=== PATIENT | female | born 1945 | race Caucasian/White ===

== ENCOUNTER → 2021-10-02 | Outpatient (CLI) | payer MEDICARE ==
[2021-10-02 09:12] LABS: BASO # 0.02 K/mm3 (0.02-0.10); EOS # 0.13 K/mm3 (0.04-0.40); EOS % 1.4 % (1.0-5.0); HEMOGLOBIN 13.6 g/dL (12.5-16.0); LYMPH# 1.65 K/mm3 (1.50-4.00); MEAN CELL VOLUME 93 fl (78-100); MEAN CORPUSCULAR HEMOGLOBIN 29 pg (27-31); MEAN CORPUSCULAR HGB CONC 31 g/dL (33-37); MEAN PLATELET VOLUME 9.4 fl (7.4-10.4); MONO # 0.62 K/mm3 (0.20-0.80); NEU # 6.91 K/mm3 (1.40-6.50); PLATELET COUNT 480 K/mm3 (130-400); RED BLOOD COUNT 4.71 M/mm3 (4.10-5.30); RED CELL DISTRIBUTION WIDTH 15.8 % (11.5-14.5); WHITE BLOOD COUNT 9.4 K/mm3 (4.8-10.8)
[2021-10-02 09:20] LABS: ALBUMIN 4.1 g/dL (3.4-4.8)
[2021-10-02 09:21] LABS: CALCIUM 9.6 mg/dL (8.3-10.5)
[2021-10-02 09:23] LABS: TOTAL PROTEIN 7.7 g/dL (6.2-8.1)
[2021-10-02 09:24] LABS: TOTAL BILIRUBIN 0.5 mg/dL (0.2-1.2)
[2021-10-02 11:35] LABS: URINE APPEARANCE CLOUDY; URINE BILIRUBIN NEGATIVE (NEGATIVE); URINE BLOOD TRACE (NEGATIVE); URINE COLOR LT YELLOW; URINE GLUCOSE NEGATIVE (NEGATIVE); URINE KETONE NEGATIVE (NEGATIVE); URINE LEUKOCYTE ESTERASE 1+ (NEGATIVE); URINE NITRATE POSITIVE (NEGATIVE); URINE PROTEIN(semi-quant) 1+ (NEGATIVE); URINE UROBILINOGEN NORMAL (NORMAL)
[2021-10-02 11:36] LABS: URINE WBC >50 /hpf (0-3)
== END ==
LOC: LAB 07:09
PROVIDERS: Family Medicine
DX: Z00.00 Encounter for general adult medical examination without abnormal findings (principal); E78.5 Hyperlipidemia, unspecified; R30.9 Painful micturition, unspecified

== ENCOUNTER → 2021-10-25 | Outpatient (CLI) | payer MEDICARE | LOC: LAB 14:52 | DX: E78.5 Hyperlipidemia, unspecified (principal); B37.2 Candidiasis of skin and nail; N39.0 Urinary tract infection, site not specified ==

== ENCOUNTER → 2021-11-21 | Outpatient (CLI) | payer MEDICARE | LOC: LAB 13:17 | DX: E78.5 Hyperlipidemia, unspecified (principal); R10.2 Pelvic and perineal pain ==

== ENCOUNTER → 2022-01-06 | Outpatient (CLI) | payer MEDICARE ==
[2022-01-06 14:41] LABS: URINE APPEARANCE HAZY; URINE COLOR LT YELLOW
[2022-01-06 14:42] LABS: URINE BILIRUBIN NEGATIVE (NEGATIVE); URINE BLOOD TRACE (NEGATIVE); URINE GLUCOSE NEGATIVE (NEGATIVE); URINE KETONE NEGATIVE (NEGATIVE); URINE LEUKOCYTE ESTERASE TRACE (NEGATIVE); URINE NITRATE NEGATIVE (NEGATIVE); URINE PROTEIN(semi-quant) NEGATIVE (NEGATIVE); URINE UROBILINOGEN NORMAL (NORMAL)
== END ==
LOC: LAB 13:06
PROVIDERS: Family Medicine
DX: N39.0 Urinary tract infection, site not specified (principal); E78.5 Hyperlipidemia, unspecified; E66.3 Overweight

== ENCOUNTER → 2022-02-23 | Outpatient (CLI) | payer MEDICARE | LOC: LAB 13:40 | DX: E78.5 Hyperlipidemia, unspecified (principal); N39.0 Urinary tract infection, site not specified; M19.90 Unspecified osteoarthritis, unspecified site; M54.42 Lumbago with sciatica, left side; R30.9 Painful micturition, unspecified ==

== ENCOUNTER → 2022-10-08 | Outpatient (CLI) | payer MEDICARE ==
[2022-10-08 12:04] LABS: BASO # 0.01 K/mm3 (0.02-0.10); EOS # 0.18 K/mm3 (0.04-0.40); EOS % 2.4 % (1.0-5.0); HEMATOCRIT 39.8 % (37.0-47.0); HEMOGLOBIN 12.8 g/dL (12.5-16.0); MEAN CELL VOLUME 96 fl (78-100); MEAN CORPUSCULAR HEMOGLOBIN 31 pg (27-31); MEAN CORPUSCULAR HGB CONC 32 g/dL (33-37); MEAN PLATELET VOLUME 9.5 fl (7.4-10.4); MONO # 0.48 K/mm3 (0.20-0.80); NEU # 4.59 K/mm3 (1.40-6.50); PLATELET COUNT 376 K/mm3 (130-400); RED BLOOD COUNT 4.14 M/mm3 (4.10-5.30); RED CELL DISTRIBUTION WIDTH 13.6 % (11.5-14.5); WHITE BLOOD COUNT 7.6 K/mm3 (4.8-10.8)
[2022-10-08 12:10] LABS: ALBUMIN 4.3 g/dL (3.4-4.8); POTASSIUM 3.9 mmol/L (3.5-5.1)
[2022-10-08 12:11] LABS: CALCIUM 9.4 mg/dL (8.3-10.5)
[2022-10-08 12:13] LABS: TOTAL PROTEIN 7.4 g/dL (6.2-8.1)
[2022-10-08 12:14] LABS: TOTAL BILIRUBIN 0.4 mg/dL (0.2-1.2)
== END ==
LOC: LAB 11:44
PROVIDERS: Family Medicine
DX: Z00.00 Encounter for general adult medical examination without abnormal findings (principal); E78.5 Hyperlipidemia, unspecified; M54.42 Lumbago with sciatica, left side; M19.90 Unspecified osteoarthritis, unspecified site; E66.3 Overweight; N39.0 Urinary tract infection, site not specified